=== PATIENT | female | born 1945 | race Caucasian/White ===

== ENCOUNTER 2016-12-23 23:26 | Inpatient (IN) ==
--- NOTE | 2016-12-24 00:47 | PROVIDER DOCUMENTATION ---
HPI-Fever - General Chief Complaint: Fever Stated Complaint: FEVER Time Seen by Provider: 12/24/16 00:05 Source: patient, family Allergies/Adverse Reactions: Patient Allergies Allergy/AdvReac Type Severity Reaction Status Date / Time ceftriaxone sodium * Allergy Severe Unknown Verified 12/23/16 23:49 [From Rocephin] pseudoephedrine Allergy Severe Unknown Verified 12/23/16 23:49 trospium chloride * Allergy Severe SWELLING Verified 12/23/16 23:49 [From Sanctura] amitriptyline HCl * Allergy Mild NAUSEA/VOMI Verified 12/23/16 23:49 [From Elavil] TING cephalexin monohydrate * Allergy Mild RASH Verified 12/23/16 23:49 [From Keflex] chlorzoxazone Allergy Mild Unknown Verified 12/23/16 23:49 [From Parafon Forte] cisapride monohydrate * Allergy Mild NAUSEA/VOMI Verified 12/23/16 23:49 [From Propulsid] TING droperidol [From Inapsine] Allergy Mild NAUSEA/VOMI Verified 12/23/16 23:49 TING gentamicin [Gentamicin] Allergy Mild RASH Verified 12/23/16 23:49 Penicillins Allergy Mild HIVES Verified 12/23/16 23:49 Phenothiazines Allergy Mild Unknown Verified 12/23/16 23:49 sertraline HCl * Allergy Mild Unknown Verified 12/23/16 23:49 [From Zoloft] Sulfa (Sulfonamide Allergy Mild RASH Verified 12/23/16 23:49 Antibiotics) baclofen Allergy Unknown Unknown Verified 12/23/16 23:49 bupropion HCl * Allergy Unknown Unknown Verified 12/23/16 23:49 [From Wellbutrin] escitalopram oxalate * Allergy Unknown Unknown Verified 12/23/16 23:49 [From Lexapro] Iodinated Contrast Media - Allergy Unknown Unknown Verified 12/23/16 23:49 Oral and adhesive AdvReac Mild Unknown Verified 12/23/16 23:49 adhesive tape AdvReac Unknown RASH Verified 12/23/16 23:49 Home Medications: Home Medication List Medication Instructions Recorded Confirmed Last Taken Type Aspirin 1 tab PO BID 07/28/12 12/24/16 12/11/15 History Levothyroxine [Synthroid] 50 microgm PO DAILY 07/28/12 12/24/16 12/11/15 History Nitroglycerin 0.4 mg SL PRN PRN 07/28/12 12/24/16 06/15/14 09:30 History Vitamin A 10,000 unit PO DAILY 07/28/12 12/24/16 12/11/15 History Cholecalciferol (Vitamin D3) 2,000 units PO BID 04/07/13 12/24/16 12/11/15 History [Vitamin D3] Cyanocobalamin (Vitamin B-12) 1,000 mcg IM DIRECTED 04/07/13 12/24/16 History [B-12] Sodium/K+/Mag/Ca/Chlor/Acetate 900 ml IV Q12HR 07/24/13 12/24/16 12/11/15 History [TPN Electrolytes Vial] Methocarbamol [Robaxin] 1 tab PO Q8H 12/01/13 12/24/16 12/11/15 History Promethazine [Phenergan] 25 mg PO Q6H PRN PRN 12/01/13 12/24/16 12/11/15 History Alprazolam 0.25 mg PO BID 08/17/14 12/24/16 11/16/15 History Denosumab [Prolia] 60 mg IM DIRECTED 08/17/14 12/24/16 12/11/15 History Furosemide [Lasix] 30 mg IV QHS 08/17/14 12/24/16 12/11/15 History Furosemide [Lasix] 60 mg IV QAM 08/17/14 12/24/16 12/11/15 History Warfarin [Coumadin] 1 mg PO QHS 08/17/14 12/24/16 12/11/15 History Diltiazem HCl 30 mg PO BID 04/28/15 12/24/16 12/11/15 History Metolazone [Zaroxolyn] 2.5 mg PO TUTH 04/28/15 12/24/16 12/11/15 History Hydrocodone/Acetaminophen [Philpot 1 each PO Q4H PRN PRN #20 tablet 05/03/1512/2411/15/15 Rx 10-325 Tablet] Ertapenem 1 gm/Ns [Invanz 1 gm/Ns] 1 gm .SEE ORDER DAILY #7 ivpb 11/28/1512/11/15 Rx Polyethylene Glycol 3350 [Miralax] 17 gm PO DAILY #30 powd.pack 11/28/1512/11/15 Rx Trazodone [Desyrel] 150 mg PO QHS #7 tablet 12/12/15 12/24/16 Unknown Rx - History of Present Illness-Fever Nature of Presenting Problem: PT C/O FEVER STARTING TODAY. STS "EVERYTIME I HAVE FEVER AND FEEL LIKE THIS, I A HAVE STAPH INFECTION IN MY PORTACATH". Fever Severity/Quality: reports: subjective Onset/Duration: reports: this evening Timing: reports: still present Severity: reports: moderate Context: reports: indwelling CVC Recent Illness?: reports: MRSA. denies: pneumonia, UTI, C. 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 denies: constipation, diarrhea, nausea, vomiting Similar Symptoms Previously?: Yes Recently seen or treated by another doctor?: Yes - Glascow Coma Score Best Eye Response ([place]): (4) open spontaneously Best Verbal Response ([place]): (5) oriented Best Motor Response ([place]): (6) obeys commands [place] Total: 15 Review of Systems - Adult - REVIEW OF SYSTEMS - ADULT Constitutional: reports: see HPI, chills, fever, fatique Eyes: reports: no symptoms reported. denies: blurred vision Ears, Nose, Mouth & Throat: reports: no symptoms reported. denies: ear pain, sinus problem, throat pain Cardiovascular: reports: no symptoms reported. denies: chest pain, palpitations , syncope Respiratory: reports: shortness of breath. denies: cough, wheezing Gastrointestinal: reports: no symptoms reported. denies: abdominal pain, nausea , vomiting Genitourinary: reports: no symptoms reported. denies: dysuria, flank pain, frequent UTI's, hematuria, urgency Musculoskeletal: reports: muscle weakness. denies: muscle aches Integumentary: reports: no symptoms reported. denies: hives, rash Neurological: reports: no symptoms reported. denies: dizziness/vertigo, headache/migraines, syncope Psychiatric: reports: no symptoms reported Endocrine: reports: no symptoms reported Hematologic/Lymphatic: reports: no symptoms reported Allergic/Immunologic: reports: see HPI, frequent infections All Other Systems: Reviewed and Negative Past History - Adult - PAST MEDICAL HISTORY-ADULT Review of Records: reports: Old Records Reviewed, Nursing Assessment Review, Medications Reviewed, Social history reviewed & non-contributory. Major Childhood Illnesses: reports: denies history Cardiovascular: reports: CAD, HTN, heart valve problem, palpitations, PVD Respiratory: reports: asthma, COPD, other (sleep apena) Gastrointestinal: reports: GERD, inflammatory bowel disease, ulcer, other (TPN Nutrition) Obstetrical/Gynecological: reports: denies history Genitourinary: reports: denies history Musculoskeletal: reports: other fractures, orthopedic injury Neurological: reports: CVA, TIA Endocrine/Immune: reports: thyroid disorder (hypo) Other Conditions: reports: denies history Additional History: scleroderma - PRIOR SURGERIES/PROCEDURES Surgical/Procedure History: reports: appendectomy, cholecystectomy, hysterectomy , hernia repair, bowel surgery, orthopedic (extremity), joint replacement, other (breast sx) - PRIOR HOSPITALIZATIONS Prior Hospitalizations: reports: for similar symptoms (recent) - IMMUNIZATION STATUS Childhood Immunizations: See Nurse Assessment Flu Vaccine: See Nurse Assessment - FAMILY HISTORY Family History: reviewed, not pertinent - SOCIAL HISTORY Smoking: cigarettes Provider spent 3-5 mins advising pt. on dangers of tobacco.: Discussed manners to quit use, and f/u contacts for add'l counseling. Physical Exam-General - PHYSICAL EXAM-ADULT Initial Vital Signs Reviewed: Yes - CONSTITUTIONAL General Appearance: appears well, alert, no apparent distress, thin - EYES Eyes: PERRL/EOMI - HEAD, EARS, NOSE, MOUTH & THROAT HENMT: normocephalic/atraumatic, moist mucous membranes - NECK Neck: non-tender, full range of motion, supple, normal inspection - RESPIRATORY Respiratory: chest non-tender, no pleuratic chest pain, no respiratory distress , no accessory muscle use, decreased breath sounds. negative: crackles, wheezing, pain on inspiration - CARDIOVASCULAR Cardiovascular: normal peripheral pulses, regular rate, rhythm - GASTROINTESTINAL (ABDOMEN) Abdominal Exam: normal bowel sounds, non tender, soft, no organomegaly, no pulsatile mass - LYMPHATIC Lymphatic: no adenopathy - MUSCULOSKELETAL Back Exam: no CVA tenderness, no vertebral tenderness, scoliosis. 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 NOTED.) - NEUROLOGIC Neurologic: grossly normal, motor weakness (PT HAS CHRONIC SCLERODERMA, BASELINE WEAKNESS AND MOBILITY ISSUES AT HOME) - PSYCHIATRIC Psych/Mental Status: normal mood/affect, oriented x 3 Progress - PLAN OF CARE/RESULTS Progress/Plan/Lab Results: Vital Signs - 8 hr 12/24/16 05:18 12/24/16 06:27 12/24/16 07:49 Temperature 102.2 F H 102.5 F H Pulse Rate 119 H Respiratory Rate 24 Blood Pressure 151/74 O2 Sat by Pulse Oximetry 95 12/24/16 06:20 Influenza Screen - Final Nasopharyngeal Laboratory Results - last 24 hr 12/24/16 12/24/16 12/24/16 00:58 00:58 00:58 WBC 7.74 RBC 3.73 L Hgb 11.9 L Hct 35.9 L MCV 96.2 MCH 31.9 H MCHC 33.1 RDW Std Deviation 13.7 Plt Count 158 MPV 12.4 H Immature Gran % (Auto) 0.0 Neut % (Auto) 83.6 H Lymph % (Auto) 8.7 L Banner % (Auto) 7.4 Eos % (Auto) 0.0 Baso % (Auto) 0.3 Immature Gran # (Auto) 0.00 Neut # (Auto) 6.48 Lymph # (Auto) 0.67 L Banner # (Auto) 0.57 Eos # (Auto) 0.00 Baso # (Auto) 0.02 PT INR PTT (Actin FS) Sodium 137 Potassium 3.7 Chloride 98 Carbon Dioxide 29 Anion Gap 10 BUN 30 H Creatinine 0.8 Estimated GFR/1.73 m2 > 60 BUN/Creatinine Ratio 38 Glucose 96 Calculated Osmolality 280 Calcium 9.2 Total Bilirubin 0.21 AST 28 ALT 21 Alkaline Phosphatase 90 Creatine Kinase 78 Troponin T Total Protein 6.4 Albumin 3.6 Globulin 2.8 Albumin/Globulin Ratio 1.3 Plasma Lactate 1.0 Urine Source Urine Color Urine Turbidity Urine pH Ur Specific [place] Urine Protein Ur Glucose (Stick) Ur Ketones (Stick) Urine Blood Urine Nitrite Urine Bilirubin Urobilinogen Dipstick Urine Leukocytes Urine WBC (Auto) Urine RBC (Auto) U Epithel Cells (Auto) Urine Bacteria (Auto) 12/24/16 12/24/16 12/24/16 00:58 00:58 02:19 WBC RBC Hgb Hct MCV MCH MCHC RDW Std Deviation Plt Count MPV Immature Gran % (Auto) Neut % (Auto) Lymph % (Auto) Banner % (Auto) Eos % (Auto) Baso % (Auto) Immature Gran # (Auto) Neut # (Auto) Lymph # (Auto) Banner # (Auto) Eos # (Auto) Baso # (Auto) PT 10.7 INR 1.02 PTT (Actin FS) 26.1 Sodium Potassium Chloride Carbon Dioxide Anion Gap BUN Creatinine Estimated GFR/1.73 m2 BUN/Creatinine Ratio Glucose Calculated Osmolality Calcium Total Bilirubin AST ALT Alkaline Phosphatase Creatine Kinase Troponin T < 0.010 Total Protein Albumin Globulin Albumin/Globulin Ratio Plasma Lactate Urine Source CATH Urine Color YELLOW Urine Turbidity CLEAR Urine pH 5.5 Ur Specific [place] 1.023 Urine Protein TRACE A Ur Glucose (Stick) NEGATIVE Ur Ketones (Stick) NEGATIVE Urine Blood NEGATIVE Urine Nitrite NEGATIVE Urine Bilirubin NEGATIVE Urobilinogen Dipstick NORMAL Urine Leukocytes NEGATIVE Urine WBC (Auto) <10 Urine RBC (Auto) <10 U Epithel Cells (Auto) <10 Urine Bacteria (Auto) NEGATIVE Orders Category Date Time Status Admit - [facility] Routine AdmDCTranf 12/24/16 08:24 Ordered Cardiac Monitoring DIRECTED Care 12/24/16 00:41 Active CHEST-2 VIEWS [RAD] Stat Exams 12/24/16 00:41 Completed BLOOD CULTURE [BLDCUL] Stat Lab 12/24/16 00:58 Results CBC WITH DIFF [HEME] Stat Lab 12/24/16 00:58 Completed CK PROFILE [SP CHEM] Stat Lab 12/24/16 00:58 Completed COMPREHENSIVE METABOLIC PANEL [CHEM] Stat Lab 12/24/16 00:58 Completed INFLUENZA SCREEN A/B Stat Lab 12/24/16 06:20 Completed LACTATE, PLASMA [CHEM] Stat Lab 12/24/16 00:58 Completed PROTIME WITH INR [COAG] Stat Lab 12/24/16 00:58 Completed PTT [COAG] Stat Lab 12/24/16 00:58 Completed TROPONIN T Stat Lab 12/24/16 00:58 Completed URINALYSIS W/POSS RFLX CULT-1 [URINALYSIS] Stat Lab 12/24/16 02:19 Completed Heparin Med 12/24/16 05:27 Discontinued 500 unit .ROUTE .STK-MED ONE Heparin Lock Med 12/24/16 05:25 Discontinued 50 unit INJ ONCE ONE Ibuprofen [Motrin] Med 12/24/16 06:28 Discontinued 800 mg PO NOW ONE Vancomycin 1 gm/Ns Med 12/24/16 04:18 Discontinued 1 gm in 250 ml IV NOW Oxygen Device Stat Oth 12/24/16 00:41 Active Transfer/Admit Order [TRANSFER] Routine Transfer 12/24/16 08:25 Ordered Result Diagrams: 12/24/16 00:58 12/24/16 00:58 - REASSESSMENT Reassessment #1 Status: unchanged (discussed need for admissioin for further treatment / evaluation) - CHANGE OF SHIFT REPORT (ED Provider) Report Given and Care Transferred to:: DR. CROCKER Time of Transfer: 02:09 Items Pending: Labs, XRAY Results Departure - Departure Date of Disposition Decision: 12/24/16 Time of Disposition Decision: 08:54 DIAGNOSIS: Scleroderma bowel disease, Intravenous catheter in place Fever Qualifiers: Fever type: unspecified Qualified Code(s): R50.9 - Fever, unspecified Disposition: ADMITTED INPATIENT 09 Certified Medical Emergency: Emergent Condition: Stable - Critical Care Note This patient required my direct & personal management of CC.: No Attestation - Physician/ LINDA Attestation Patient care was provided by Advanced Practice Provider:: Yes Advanced Practice Provider:: Kenisha Atkins Advanced Practice Provider documentation review:: The Mid-level provider documentation, treatment plan and medical decision making was reviewed by the physician who agrees with all treatment and medical decision making by the [facility].
[2016-12-24 01:29] LABS: MANUAL DIFF NEEDED? NO
[2016-12-24 01:38] LABS: BASO% 0.3 % (0.0-0.8); HEMATOCRIT 35.9 % (37.0-47.0); HEMOGLOBIN 11.9 g/dL (12.0-16.0); LYMPH# 0.67 X1000 (1.2-3.4); LYMPH% 8.7 % (20.5-51.1); MCH 31.9 PG (27-31); MCHC 33.1 g/dL (33-37); MCV 96.2 FL (81-99); MONO# 0.57 X1000 (0.11-0.59); MONO% 7.4 % (1.7-9.3); MPV 12.4 FL (7.4-10.4); NEUT% 83.6 % (42.2-75.2); PLT 158 X1000 (130-400); RBC 3.73 XMIL (4.2-5.4)
[2016-12-24 01:44] LABS: INR 1.02; PROTIME 10.7 Seconds (9.2-11.7); PTT 26.1 Seconds (22.0-36.0)
[2016-12-24 02:02] LABS: AGAP 10; ALBUMIN 3.6 g/dL (3.5-5.0); ALKALINE PHOSPHATASE 90 U/L (32-104); BUN 30 mg/dL (8-22); CALCIUM 9.2 mg/dL (8.8-10.2); CHLORIDE 98 mmol/L (98-107); CK PROFILE 78 U/L (24-173); COSMO 280; GOT 28 U/L (10-30); GPT 21 U/L (10-36); POTASSIUM 3.7 mmol/L (3.5-5.1); SODIUM 137 mmol/L (136-145); TCO2 29 mmol/L (25-35); TOTAL BILIRUBIN 0.21 mg/dL (0.20-1.00); TOTAL PROTEIN 6.4 g/dL (6.3-8.3)
[2016-12-24 02:29] LABS: URINE CULTURE NEEDED? NO; URINE MICRO REVIEW NEEDED? NO; URINE SOURCE CATH
[2016-12-24 02:31] LABS: BILIRUBIN URINE NEGATIVE (NEGATIVE); BLOOD URINE NEGATIVE (NEGATIVE); COLOR YELLOW; GLUCOSE URINE NEGATIVE (NEGATIVE); LEUKOCYTES URINE NEGATIVE (NEGATIVE); NITRITE URINE NEGATIVE (NEGATIVE); PH URINE 5.5; PROTEIN URINE TRACE mg/dL (NEGATIVE); SP GRAVITY URINE 1.023; TURBIDITY URINE CLEAR (CLEAR); UROBILINOGEN URINE NORMAL (NORMAL)
[2016-12-24 02:32] LABS: UR EPITHELIAL CELLS <10 /HPF (<10); URINE BACTERIA NEGATIVE /HPF; URINE RBC <10 /HPF (<10); URINE WBC <10 /HPF (<10)
[2016-12-24] MEDS ORDERED: VANCOMYCIN 1 GM/NS 1 GM/250 ML IVPB IV ONE (04:18)
[2016-12-24] MEDS ORDERED: HEPARIN ONE (05:27)
[2016-12-24] MEDS ORDERED: MOTRIN PO ONE (06:28)
--- NOTE | 2016-12-24 07:31 | Diag Imaging Result Doc PS360 ---
EXAM: CHEST-2 VIEWS HISTORY: SOB, FEVER TECHNIQUE: PA and lateral chest COMMENT: There is elevation of the left hemidiaphragm which was also the case on 12/19/2016. There is apparent COPD. Overall, there has been no significant change since the previous study. IMPRESSION: Stable chest. Electronically signed by Jacob Zuñiga 12/24/2016 7:29 AM
[2016-12-24] MEDS ORDERED: CHLOR IV SCH (09:14)
[2016-12-24] MEDS ORDERED: [UNRECOGNIZED DRUG - OTHER] IV SCH (09:14)
[2016-12-24] MEDS ORDERED: NS SCH (09:14)
[2016-12-24] MEDS ORDERED: SODIUM IV SCH (09:14)
[2016-12-24] MEDS ORDERED: NITROGLYCERIN SL PRN (09:14)
[2016-12-24] MEDS ORDERED: NORCO-10 PO PRN (09:14)
[2016-12-24] MEDS ORDERED: PATIENT'S OWN MED IM SCH ×2 (09:14)
[2016-12-24] MEDS ORDERED: ERTAPENEM SCH (09:14)
[2016-12-24] MEDS ORDERED: ACETATE IV SCH (09:14)
[2016-12-24] MEDS ORDERED: MAG IV SCH (09:14)
[2016-12-24] MEDS ORDERED: SODIUM CHLORIDE 0.9% INJ PRN (10:00)
[2016-12-24] MEDS ORDERED: MYCAMINE 100 MG in NS 100 ML IV SCH (10:00)
--- NOTE | 2016-12-24 10:12 | Diag Imaging Result Doc PS360 ---
EXAM: ABDOMEN FLAT/UPRIGHT HISTORY: abd distention TECHNIQUE: Portable upright and supine, two views COMPARISON: 01/06/2014 FINDINGS: Moderate scoliosis. No bowel obstruction. No organomegaly. Mechanical device overlies the lower left abdomen. Prior orthopedic replacement of the left hip. IMPRESSION: No definite acute abnormality. Electronically signed by Cody Álvarez 12/24/2016 10:09 AM
[2016-12-24] MEDS ORDERED: CUBICIN (FOR INPATIENT USE) 500 MG in NS 100 ML IV SCH (11:00)
[2016-12-24 11:08] LABS: IRON SATURATION 4 %; TIBC 271 ug/dL; TOTAL IRON 11 ug/dL (49-151); UNBOUND IRON 260 ug/dL (112-346)
[2016-12-24] MEDS: MIRALAX PO SCH (11:19)
[2016-12-24] MEDS ORDERED: NS 1,000 ML ONE (11:27)
[2016-12-24] MEDS: XANAX PO SCH ×2 (11:29→21:38)
[2016-12-24] MEDS: VITAMIN D PO SCH ×2 (11:29→21:37)
[2016-12-24] MEDS: CARDIZEM PO SCH ×2 (11:29→21:37)
[2016-12-24] MEDS: ASPIRIN PO SCH ×2 (11:29→21:37)
[2016-12-24] MEDS: ROBAXIN PO SCH ×2 (11:30→18:20)
[2016-12-24] MEDS: NS 1,000 ML IV SCH (11:31)
[2016-12-24] MEDS: SYNTHROID PO SCH (11:31)
[2016-12-24] MEDS: LASIX IV SCH ×2 (11:40→21:36)
--- NOTE | 2016-12-24 12:15 | HISTORY AND PHYSICAL ---
PRIMARY CARE PHYSICIAN: Gregorio Guillen MD. CHIEF COMPLAINT: Fever. HISTORY OF PRESENT ILLNESS: Mrs. Elizondo is an unfortunate 71-year-old female with a history of severe systemic scleroderma and multiple other medical problems, who presents with 12 hours of fever and chills. The patient has had multiple Port-A-Cath exchanges secondary to infection. She states that any time she has a fever, her port has become infected and she feels this is the case this time. Fever and chills started around 6-7:00 last night. She had hard chills followed by a fever of 102 degrees. She did have some mild nausea and 1 episode of vomiting this morning. She also reports a bit of a dry cough, but no sputum production. She denies any chest pain or shortness of breath, she does have some mild abdominal distention, but she does report flatus and bowel movements. Prior to last evening, she was in her normal state of health. When she came to the ER, she had labs and diagnostics done. Her initial temperature was 100.3 degrees Fahrenheit, and this tiffanie to 102.5 degrees Fahrenheit and she is slightly tachycardic. Her lab work does not show anything acute, she does not have any leukocytosis. She is mildly anemic, but otherwise labs, which include urinalysis did not show any other signs of infection. Given her history, vasquez cultures have been obtained and broad-spectrum antibiotics have been initiated. We are going to admit her to the floor for suspected sepsis. PAST MEDICAL HISTORY: 1. Severe systemic scleroderma, affecting lungs, GI and skin. 2. Malabsorption syndrome on TPN. 3. History of CVA and TIAs. 4. Hypertension. 5. Hypothyroidism. 6. Anxiety. 7. History of osteomyelitis and recurrent lower extremity cellulitis. 8. COPD. 9. Osteoporosis. 10. Osteoarthritis. 11. Rheumatoid arthritis. 12. Chronic anemia. 13. Coronary artery disease status post non-ST elevation [place]. PAST SURGICAL HISTORY: She has had bowel resection x3. Pain pump implement implantation, multiple Port-A-Cath insertions and removals. Left femoral neck fracture repair. Left hip total arthroplasty, PCI, thoracic laminectomy, lysis of small bowel adhesions, left breast lumpectomy, hysterectomy, highly selective vagotomy, cholecystectomy, appendectomy. SOCIAL HISTORY: Patient is . She does not smoke, use illicit substances or drink alcohol. ALLERGIES: Rocephin, pseudoephedrine, Sanctura, Elavil, Keflex, Parafon Forte, Propulsid, Inapsine, gentamicin, penicillin, phenothiazine, Zoloft, sulfa, baclofen, Wellbutrin, Lexapro, IV contrast media oral and IV, Invanz, adhesives. FAMILY HISTORY: Noncontributory. REVIEW OF SYSTEMS: Fourteen-point review of systems obtained and found to be negative with the exception of the HPI. HOME MEDICATIONS: Xanax 0.25 mg p.o. b.i.d., aspirin 81 mg b.i.d., vitamin D3 2000 p.o. b.i.d., vitamin B12 at 1000 mcg IM as directed. Prolia 60 mg IM as directed, Cardizem 30 mg p.o. b.i.d., Lasix 30 mg IV at bedtime, Lasix 60 mg IV q.a.m., Synthroid 50 mcg p.o. daily. Robaxin 500 mg every 8 hours. Zaroxolyn 2.5 mg p.o. on Saturday and . Nitroglycerin as needed, Phenergan 25 mg p.o. as needed. TPN as directed. Desyrel 150 mg p.o. at bedtime, vitamin A 10,000 units p.o. daily, Coumadin 1 mg p.o. at bedtime. PHYSICAL EXAMINATION: VITAL SIGNS: Blood pressure is 100/50, heart rate 106, respiratory rate 18, O2 saturations 96% on 3 L nasal cannula. Temperature is 102.5. GENERAL: This is a chronically ill-appearing, 71-year-old female, lying in hospital bed. No acute distress. NEUROLOGIC: The patient is a bit sleepy, but she opens her eyes spontaneously. She is oriented and follows commands without focal deficits. HEENT: Head is atraumatic, normocephalic. Her pupils are equal, round, reactive to light. Oral mucosa is moist. Trachea is midline. CHEST: Diminished at the bases. CARDIOVASCULAR: Regular rate and rhythm. S1-S2 is noted. GI: Slightly distended, but nontender. Bowel sounds are hypoactive. EXTREMITIES: No edema, but she does have brownish discoloration in both lower extremities. Pulses are palpable, but diminished bilaterally. No signs of infection present at this time. DIAGNOSTIC DATA: Chest x-ray shows left hemidiaphragm elevation. Glucose is unchanged, otherwise no other findings of concern. WBC 7.74, hemoglobin 11.9, hematocrit 35.9, platelet count 158. INR 1.02, sodium 137, potassium 3.7, chloride 98, CO2 of 29, anion gap 10, BUN 30, creatinine 0.8, glucose 96, calcium 9.2. LFTs and troponin are negative. Albumin 3.6. UA does not show any acute findings. Lactic acid serum is 1. ASSESSMENT AND PLAN: 1. Suspected sepsis: We have pancultured the patient and we are going to start her on daptomycin. We will also add micafungin as she has a history of huy fungemia in the past. We have also ordered fungal cultures. Dr. Thao has been consulted. Will add IV fluid hydration and monitor. We will give her Tylenol and Advil for fever. 2. Mild abdominal distention: We will check an abdomen x-ray now. If any suspicious findings for obstruction, will get a CT, but she is nontender. 3. History of coronary artery disease: Patient denies any chest pain or orthopnea. Will continue her home medications and monitor her on telemetry. 4. Severe systemic scleroderma with malabsorption: We are going to consult Nutrition for total parenteral nutrition management and continue her TPN. 5. Hypothyroidism: She has had recent thyroid function panel done. We will continue her Synthroid. 6. B12 deficient anemia: We are going to check iron studies and continue her IM B12. 7. If the patient's port is indeed infected, we will need to consult surgery and have at least a PICC line placed, if not complete replacement of the port system. 8. Deep vein thrombosis prophylaxis is provided with low-dose Coumadin, which she takes at home. Further recommendations to follow. Dictated by JESSE Haas for Constance Arroyo MD cc: JESSE Haas MD Hiteshri S. Bhavsar, MD The patient was seen and examined by me. I agree with the assessment and plan as dictated. [facility]
[2016-12-24] MEDS: PATIENT'S OWN MED PO SCH (14:04)
[2016-12-24] MEDS: PERCOCET-5 PO SCH (16:09)
[2016-12-24] MEDS ORDERED: VANCOMYCIN IV PER PHARMACY MISC SCH (16:15)
[2016-12-24] MEDS: PHENERGAN IV PRN (16:26)
[2016-12-24] MEDS ORDERED: AZACTAM 1 GM in NS 50 ML IV SCH (17:00)
[2016-12-24 17:54] LABS: AGAP 14; BUN 19 mg/dL (8-22); CALCIUM 8.7 mg/dL (8.8-10.2); CHLORIDE 98 mmol/L (98-107); COSMO 279; GOT 68 U/L (10-30); MAGNESIUM 1.4 mg/dL (1.5-2.7); POTASSIUM 2.8 mmol/L (3.5-5.1); PREALBUMIN 13.1 mg/dL (20-40); SODIUM 139 mmol/L (136-145); TCO2 27 mmol/L (25-35); TRIGLYCERIDES 145 mg/dL (35-135)
[2016-12-24] MEDS ORDERED: VANCOMYCIN 1,500 MG in NS 250 ML IV ONE (19:00)
[2016-12-24] MEDS: DESYREL PO SCH (21:37)
[2016-12-24] MEDS: COUMADIN PO SCH (21:37)
[2016-12-24] MEDS: TYLENOL PO PRN (21:37)
[2016-12-24] MEDS: POTASSIUM CHLORIDE IV SCH ×9 (21:57)
[2016-12-24] MEDS: MAGNESIUM SULFATE IV SCH ×9 (21:57)
[2016-12-24] MEDS: [UNRECOGNIZED DRUG - OTHER] IV SCH ×9 (21:57)
[2016-12-24] MEDS: CALCIUM GLUCONATE IV SCH ×9 (21:57)
[2016-12-24] MEDS ORDERED: LIPOSYN 20% 500 ML IV SCH (22:00)
[2016-12-25] MEDS: NS 1,000 ML IV SCH (01:26)
--- NOTE | 2016-12-25 02:43 | CONSULTATION ---
DATE OF CONSULTATION: 12/24/2016 CONCLUSION: Patient is admitted with a one-day history of fever and shaking chills. I agree with the other physicians that most likely patient has an infection in her right- sided Port-A-Cath. RECOMMENDATIONS: I have discontinued daptomycin and micafungin. I have put the patient on vancomycin and because of her allergy to Rocephin, I have chosen to put her on aztreonam. DISCUSSION: The patient has a one-day history of fever and chills. She has had previously Port-A- Cath infections and she did say that she does get fever and chills with them. She is not coughing. She is not complaining of dysuria. She does have some nausea and vomiting and reflux, mainly because of her scleroderma. She has not noticed any skin rash. Laboratory studies thus far show a CBC with a white count of 7740, hemoglobin 11.9, and platelet count 158,000, creatinine 0.8. GFR is greater than 60. A swab for influenza was negative. Blood and urine cultures are pending. Chest x-ray shows COPD with an elevated left hemidiaphragm. PAST MEDICAL HISTORY/REVIEW OF SYSTEMS: Eyes and ears: She denies difficulty hearing or seeing. Neck: No stiffness. Respiratory: She does not have a chronic cough. The patient intermittently has coughing. She does have some dyspnea on exertion. She is not producing any sputum at this time. GI: Patient cannot absorb food well and she that is why she is on permanent hyperalimentation which she does over a 12 hour period at night. Genitourinary: No dysuria or flank pain. Bones, joints, muscles: Patient has thickened and stretched skin. She also has joint swelling due to her rheumatoid arthritis. The skin changes are due to scleroderma. Also as a result of scleroderma, the patient has gastroesophageal reflux disease. Endocrine: No thyroid disease. Patient has hypothyroidism, but not diabetes mellitus. Hematologic: Patient does not have anemia but she does have problems with bleeding because she is on Coumadin. Neurologic: She does not have seizures or syncopal episodes. No motor or sensory loss. The remainder of the patient's review of systems was completed and was negative. SOCIAL HISTORY[place] She smoke cigarettes. She does not drink alcoholic beverages or abuse drugs. She is . She is disabled. 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 She has had a hysterectomy. PREVIOUS HOSPITALIZATIONS AND OPERATIONS: She has had multiple Port-A-Cath removed and replaced. She is a 3, para 2, AB 1. She has had a hysterectomy. She has had a stroke and a left total hip arthroplasty. MEDICAL DISEASES: Positive for scleroderma, hypertension, stroke, rheumatoid arthritis and gastroesophageal reflux disease, hypothyroidism. INFECTIOUS DISEASE HISTORY: Positive for pneumonia and UTI. FAMILY HISTORY: Positive for diabetes mellitus, hypertension, and stroke. SOCIAL HISTORY: [place] She smoke cigarettes. Does not drink alcoholic beverages or abuse drugs. She is . She is disabled. DRUG ALLERGIES: Rocephin, pseudoephedrine, Sanctura, amitriptyline, Keflex, Parafon Forte, Propulsid, Niaspan, gentamicin, penicillin, phenothiazine, sertraline, sulfa, baclofen, Wellbutrin, Lexapro, iodinated contrast, ertapenem and adhesive tape. MEDICATIONS TAKEN AT HOME INCLUDE THE FOLLOWING: Oxycodone. Cholecalciferol. Aspirin. Alprazolam. Zaroxolyn. Robaxin. Synthroid. Lasix. Diltiazem. Prolia. Vitamin B12. Phenergan. Coumadin. Vitamin A. Trazodone. Nitroglycerin. PHYSICAL EXAMINATION: Vital signs: Temperature was 102.5 degrees, now it is 98.4, pulse 102, respirations 18, blood pressure 125/59. Patient weighs 137 pounds. General General: Patient looks ill. She has a mask facies and skin that feels firm without any wrinkles over her hands. Head, eyes, ears, nose and throat: She can hear my spoken words and see near objects. No drainage noted from the nose or ears. Neck: No meningismus. Thorax: Port-A -Cath present on the right side. The site is not swollen, tender or erythematous. Lungs: Clear to auscultation. Cardiovascular: Regular heart rate. Abdomen: Soft and nontender. Bones, joints, muscles: She does have multiple finger deformities due to rheumatoid arthritis with swelling of the joints. Integument: Patient has thickened skin without any wrinkles due to her scleroderma. Neurologic: Patient is alert. She can move her extremities. There is no tremor. Her sensation is intact to touch. Her memory as regarding her medical diseases seems to be intact. ADDENDUM: Blood cultures growing gram positive cocci. Continue vancomycin, D/C aztreonam. Thank you for the consult. cc: John Thao MD MTDD
[2016-12-25] MEDS: ROBAXIN PO SCH ×3 (04:56→17:44)
[2016-12-25] MEDS: PHENERGAN IV PRN ×3 (04:57→22:04)
[2016-12-25] MEDS: SYNTHROID PO SCH (06:27)
[2016-12-25] MEDS: TYLENOL PO PRN (06:31)
[2016-12-25 06:41] LABS: HEMATOCRIT 36.9 % (37.0-47.0); HEMOGLOBIN 12.2 g/dL (12.0-16.0); MCH 32.3 PG (27-31); MCHC 33.1 g/dL (33-37); MCV 97.6 FL (81-99); MPV 12.2 FL (7.4-10.4); RBC 3.78 XMIL (4.2-5.4)
[2016-12-25 06:42] LABS: MAGNESIUM 1.7 mg/dL (1.5-2.7)
[2016-12-25 06:49] LABS: AGAP 11; BUN 25 mg/dL (8-22); CALCIUM 9.1 mg/dL (8.8-10.2); CHLORIDE 100 mmol/L (98-107); COSMO 284; POTASSIUM 3.5 mmol/L (3.5-5.1); SODIUM 139 mmol/L (136-145); TCO2 28 mmol/L (25-35)
[2016-12-25] MEDS ORDERED: NS 0 ML ONE (08:12)
[2016-12-25] MEDS: VITAMIN D PO SCH ×2 (09:08→20:37)
[2016-12-25] MEDS: CARDIZEM PO SCH ×2 (09:09→20:37)
[2016-12-25] MEDS: ASPIRIN PO SCH ×2 (09:09→20:36)
[2016-12-25] MEDS: PERCOCET-5 PO SCH ×4 (09:09→17:44)
[2016-12-25] MEDS: ZAROXOLYN PO SCH (09:09)
[2016-12-25] MEDS: XANAX PO SCH ×2 (09:09→20:36)
[2016-12-25] MEDS: MIRALAX PO SCH (09:10)
[2016-12-25] MEDS: PATIENT'S OWN MED PO SCH (09:11)
[2016-12-25] MEDS: LASIX IV SCH ×2 (09:16→20:34)
--- NOTE | 2016-12-25 15:33 | PROGRESS NOTE ---
DATE: 12/25/2016 SUBJECTIVE: This patient states that she is feeling better. She is not having fever or chills today. Yesterday night she had a low-grade fever. She has a right Port-A-Cath in the chest that probably is infected, and we have a positive blood culture that showed gram-positive cocci 2/2. OBJECTIVE: Vital Signs: Temperature 98 degrees, pulse 85, respiratory rate 19, blood pressure 108/65, oxygen saturation 98 on 2 L of nasal cannula. HEENT: Head normocephalic. No trauma. PERRLA. Neck: Supple. No JVD. No masses. Central trachea. Chest: Right upper chest Port-A- Cath without erythema. Mild soreness to palpation. She has multiple scars at the level of the left upper chest secondary to previous multiple Port-A-Cath's. Abdomen.: Soft, nontender, nondistended. No hepatosplenomegaly. Extremities: No edema. No clubbing. No cyanosis. She has some feet deformity and had hand deformity as well secondary to rheumatoid arthritis. Neurological examination: The patient is alert and oriented x3. No focal neurological deficits. LABORATORY: WBC 7.1, hemoglobin 12.2, hematocrit 36.9, platelets 108. Sodium 139, potassium 3.5, chloride 100, bicarbonate 28, BUN 25, creatinine 0.7, glucose 142, calcium 9.1, magnesium 1.7. ASSESSMENT AND PLAN: 1. Fever and chills. This patient initially was admitted because of fever and chills. Yesterday she had a low-grade fever during the night, but today she has been without fever. We did some cultures that showed a gram-positive cocci, so this patient has bacteremia. Infectious Disease Department is following this patient. We will continue following their recommendations. 2. Bacteremia as above. 3. Mild abdominal distention, resolved. Today the abdomen is okay. No pain and she is passing gas. 4. History of coronary artery disease. No chest pain or shortness of breath at this moment. 5. Severe systemic scleroderma with malabsorption. We will continue with total parenteral nutrition. 6. Hypothyroidism. Continue with Synthroid. 7. B 12 deficiency anemia, aware. Continue to monitor. 8. Deep vein thrombosis prophylaxis provided by low-dose Coumadin, which she takes at home. cc: Doe Laguna MD
--- NOTE | 2016-12-25 19:20 | PROGRESS NOTE ---
DATE: 12/25/2016 PRESENT ILLNESS: The patient has a gram-positive coccal bacteremia most likely originating from her Port-A-Cath. MEDICATIONS: Patient is receiving vancomycin. PHYSICAL EXAMINATION: Vital Signs: Temperature is 98.9 degrees, pulse 94, respirations 20, blood pressure 72/53. General: This is a much better appearing, elderly female than last night when she was having shaking chills. Lungs: Clear to auscultation. Cardiovascular: Regular heart rate. Abdomen: Soft and nontender. Chest: The patient's Port-A-Cath site is not swollen or erythematous. LAB AND X-RAY: CBC today shows a white count of 7100, hemoglobin 12.2, and platelet count 108,000. Creatinine 0.7. GFR is greater than 60. Swab for influenza was negative. Urine culture is negative. Blood culture is growing gram-positive cocci. They have not been identified yet. ASSESSMENT AND PLAN: For now we will continue vancomycin. If the patient's organism turns out to be a coagulase-negative staph, then it would be worthwhile trying to treat her with vancomycin for a 2-3 week period in the hopes of saving the Port-A-Cath. If the organism turns out to be Staph aureus or a virulent Streptococcus such as group A strep or group B strep, then most likely the Port-A-Cath will have to be removed to clear the patient's bacteremia. COMORBIDITIES: She has to have chronic hyperalimentation, therefore, there is the need for continual IV access. She is elderly. She has scleroderma, rheumatoid arthritis and gastroesophageal reflux disease. cc: John Thao MD
[2016-12-25] MEDS: DESYREL PO SCH (20:35)
[2016-12-25] MEDS: COUMADIN PO SCH (20:37)
[2016-12-25] MEDS: MAGNESIUM SULFATE IV SCH ×9 (21:46)
[2016-12-25] MEDS: CALCIUM GLUCONATE IV SCH ×9 (21:46)
[2016-12-25] MEDS: POTASSIUM CHLORIDE IV SCH ×9 (21:46)
[2016-12-25] MEDS: [UNRECOGNIZED DRUG - OTHER] IV SCH ×9 (21:46)
[2016-12-25] MEDS ORDERED: LIPOSYN 20% 250 ML IV SCH (22:00)
[2016-12-26] MEDS: ROBAXIN PO SCH ×3 (01:28→18:45)
[2016-12-26] MEDS: PHENERGAN IV PRN ×3 (05:19→20:42)
[2016-12-26] MEDS: SYNTHROID PO SCH (06:14)
[2016-12-26 06:45] LABS: MANUAL DIFF NEEDED? NO
[2016-12-26 06:55] LABS: BASO% 0.9 % (0.0-0.8); EOS# 0.27 X1000 (0.0-0.7); HEMATOCRIT 37.2 % (37.0-47.0); HEMOGLOBIN 12.5 g/dL (12.0-16.0); IMM GRAN# 0.02 X1000 (0.0-0.04); IMM GRAN% 0.4 % (0.0-0.5); LYMPH# 1.36 X1000 (1.2-3.4); LYMPH% 25.3 % (20.5-51.1); MCH 31.6 PG (27-31); MCHC 33.6 g/dL (33-37); MCV 94.2 FL (81-99); MONO# 0.31 X1000 (0.11-0.59); MONO% 5.8 % (1.7-9.3); MPV 12.3 FL (7.4-10.4); NEUT% 62.6 % (42.2-75.2); PLT 123 X1000 (130-400); RBC 3.95 XMIL (4.2-5.4)
[2016-12-26 07:07] LABS: INR 0.98; PROTIME 10.3 Seconds (9.2-11.7)
[2016-12-26 07:26] LABS: AGAP 12; ALBUMIN 3.1 g/dL (3.5-5.0); ALKALINE PHOSPHATASE 89 U/L (32-104); BUN 29 mg/dL (8-22); CALCIUM 9.6 mg/dL (8.8-10.2); CHLORIDE 94 mmol/L (98-107); COSMO 284; DIRECT BILIRUBIN < 0.20 mg/dL (0.00-0.20); GOT 49 U/L (10-30); GPT 34 U/L (10-36); MAGNESIUM 1.9 mg/dL (1.5-2.7); POTASSIUM 3.3 mmol/L (3.5-5.1); PREALBUMIN 13.8 mg/dL (20-40); SODIUM 138 mmol/L (136-145); TCO2 32 mmol/L (25-35); TOTAL PROTEIN 6.2 g/dL (6.3-8.3); TRIGLYCERIDES 399 mg/dL (35-135)
[2016-12-26] MEDS ORDERED: VANCOMYCIN 1,200 MG in NS 250 ML IV SCH (08:00)
[2016-12-26] MEDS ORDERED: KLOR-CON PO ONE (08:02)
[2016-12-26] MEDS: ASPIRIN PO SCH ×2 (08:40→20:44)
[2016-12-26] MEDS: VITAMIN D PO SCH ×2 (08:40→20:44)
[2016-12-26] MEDS: MIRALAX PO SCH ×2 (08:41→08:52)
[2016-12-26] MEDS: PATIENT'S OWN MED PO SCH (08:42)
[2016-12-26] MEDS: CARDIZEM PO SCH ×2 (08:48→20:44)
[2016-12-26] MEDS: PERCOCET-5 PO SCH ×3 (09:00→18:44)
[2016-12-26] MEDS: XANAX PO SCH ×2 (09:01→20:44)
[2016-12-26] MEDS: LASIX IV SCH ×2 (09:01→20:43)
--- NOTE | 2016-12-26 15:40 | PROGRESS NOTE ---
DATE: 12/26/2016 SUBJECTIVE: This patient states that she is feeling much better. She has generalized joint pain and this is likely secondary to her rheumatoid arthritis. I will ask today for physical therapy. Her potassium is also low. I will replace the potassium and pulled her on p.r.n. pain medication. OBJECTIVE: Vital Signs: Temperature 98.0 degrees, pulse 82, respiratory rate 17, blood pressure 119/62, oxygen saturation 92% on room air. HEENT: Head normocephalic. No trauma. PERRLA. Neck: Supple. No JVD. No masses. Central trachea. Chest: She has a right upper chest Port-A- Cath without erythema, mild soreness to palpation. She has multiple scars at the level of the left upper chest secondary to previous multiple Port-A-Cath removals. Abdomen: Soft, nontender, nondistended. No hepatosplenomegaly. Extremities: No edema. No clubbing. No cyanosis. She has foot and some hand deformities, as well, secondary to rheumatoid arthritis with pain. Neurologic: The patient is alert and oriented x3. No focal deficits. LABORATORY: WBC 5.3, hemoglobin 12.5, hematocrit 37.2, platelets 123,000. Sodium 138, potassium 3.3, chloride 94, bicarbonate 32, BUN 29, creatinine 0.7, glucose 142, calcium 9.6, magnesium 1.9, phosphorus 3.1, albumin 3.1. ASSESSMENT AND PLAN: 1. Fever and chills. No fever for the past 24 hours. We did a blood culture that showed Gram- positive cocci x2. One of them grew Staphylococcus capitis. The other one is pending sensitivity and bacteria. Infectious Disease Department is following this patient. We will continue with the same management for now. 2. Bacteremia, as above. 3. Mild abdominal distention, resolved. 4. History of coronary artery disease. No chest pain. No shortness of breath at this moment. 5. Severe systemic scleroderma with malabsorption. We will continue with TPN. 6. Hypothyroidism. Continue with Synthroid. 7. B12 deficiency anemia. Aware. Continue to monitor. 8. Deep vein thrombosis prophylaxis provided by low-dose Coumadin, which she takes at home. cc: Doe Laguna MD
--- NOTE | 2016-12-26 17:02 | PROGRESS NOTE ---
DATE: 12/26/2016 PRESENT ILLNESS: The patient has a bacteremia. Today, the organism has been identified as Staphylococcus capitis. MEDICATIONS: The patient currently is receiving vancomycin. PHYSICAL EXAMINATION: Vital Signs: Temperature is 98.9 degrees, pulse 87, respirations 15, blood pressure 118/86. Generally: This is a somewhat of an ill-appearing elderly female. She is in no acute distress. Lungs: Clear to auscultation. Cardiovascular: Regular heart rate. I did not hear a murmur. Abdomen: Soft and nontender. Chest: The patient's Port-A-Cath site is not erythematous or swollen. Extremities: Patient has changes consistent with rheumatoid arthritis and also scleroderma in her hands. LABORATORY DATA AND X-RAY: The patient's creatinine today is 0.7. GFR is greater than 60. CBC shows a white count of 5370. Hemoglobin 12.5 and platelet count 123,000. Creatinine is 0.7. GFR is greater than 60. ASSESSMENT AND PLAN: I discussed with the patient the finding of the Staphylococcus bacteremia. I told them that for organisms that are not Staphylococcus aureus but are still staphylococci coagulase negative cocci that it would be worthwhile treating the patient with antibiotics being delivered through her Port-A-Cath to see if we can save it and not have to take it out. I did tell her though that there still would be a possibility that we could not eradicate the bacteremia in that situation then the Port-A-Cath would have to be removed. The patient is agreeable to try this. She does have a history of allergy to ceftriaxone and Keflex, but she has told me, she has had Ancef many times and has tolerated it well. She is also allergic to penicillins. I have gone ahead and put the consult in for [facility] who manages the patient's TPN to also give her Ancef. Patient's comorbidities include that she has to have chronic TPN intravenously thus she requires a long-term IV catheter. She also has rheumatoid arthritis and scleroderma. She also has gastroesophageal reflux disease. cc: John Thao MD
[2016-12-26] MEDS: KEFZOL 2 GM/D5W 2 GM/50 ML IVPB IV SCH (18:44)
[2016-12-26] MEDS: DILAUDID IV PRN (20:42)
[2016-12-26] MEDS: DESYREL PO SCH (20:44)
[2016-12-26] MEDS: COUMADIN PO SCH (20:44)
[2016-12-26] MEDS: [UNRECOGNIZED DRUG - OTHER] IV SCH ×9 (23:07)
[2016-12-26] MEDS: CALCIUM GLUCONATE IV SCH ×9 (23:07)
[2016-12-26] MEDS: POTASSIUM CHLORIDE IV SCH ×9 (23:07)
[2016-12-26] MEDS: MAGNESIUM SULFATE IV SCH ×9 (23:07)
[2016-12-27] MEDS: ROBAXIN PO SCH ×2 (02:10→11:15)
[2016-12-27] MEDS: PHENERGAN IV PRN ×2 (06:12→13:03)
[2016-12-27] MEDS: DILAUDID IV PRN ×2 (06:12→13:03)
[2016-12-27] MEDS: KEFZOL 2 GM/D5W 2 GM/50 ML IVPB IV SCH (06:13)
[2016-12-27] MEDS: SYNTHROID PO SCH (06:13)
[2016-12-27 06:59] LABS: MANUAL DIFF NEEDED? NO
[2016-12-27 07:01] LABS: BASO% 0.7 % (0.0-0.8); EOS# 0.17 X1000 (0.0-0.7); EOS% 2.9 % (0.0-10.0); HEMATOCRIT 37.7 % (37.0-47.0); HEMOGLOBIN 12.4 g/dL (12.0-16.0); IMM GRAN# 0.02 X1000 (0.0-0.04); IMM GRAN% 0.3 % (0.0-0.5); LYMPH# 1.67 X1000 (1.2-3.4); LYMPH% 28.2 % (20.5-51.1); MCH 31.3 PG (27-31); MCHC 32.9 g/dL (33-37); MCV 95.2 FL (81-99); MONO# 0.85 X1000 (0.11-0.59); MONO% 14.3 % (1.7-9.3); MPV 12.5 FL (7.4-10.4); NEUT% 53.6 % (42.2-75.2); PLT 138 X1000 (130-400); RBC 3.96 XMIL (4.2-5.4)
[2016-12-27 07:39] LABS: AGAP 10; BUN 32 mg/dL (8-22); CALCIUM 10.4 mg/dL (8.8-10.2); CHLORIDE 96 mmol/L (98-107); COSMO 291; GOT 30 U/L (10-30); MAGNESIUM 1.9 mg/dL (1.5-2.7); POTASSIUM 3.7 mmol/L (3.5-5.1); PREALBUMIN 18.3 mg/dL (20-40); SODIUM 142 mmol/L (136-145); TCO2 36 mmol/L (25-35)
[2016-12-27 07:57] VITALS: BP 108/47
[2016-12-27] MEDS: VITAMIN D PO SCH (11:15)
[2016-12-27] MEDS: PERCOCET-5 PO SCH (11:16)
[2016-12-27] MEDS: XANAX PO SCH (11:19)
[2016-12-27] MEDS: ASPIRIN PO SCH (11:20)
[2016-12-27] MEDS: LASIX IV SCH ×2 (11:23→11:29)
[2016-12-27] MEDS: MIRALAX PO SCH (11:30)
[2016-12-27] MEDS: PATIENT'S OWN MED PO SCH (11:30)
[2016-12-27] MEDS: ZAROXOLYN PO SCH (11:32)
[2016-12-27] MEDS: CARDIZEM PO SCH (11:36)
--- NOTE | 2016-12-28 12:11 | DISCHARGE SUMMARY ---
ADMISSION DATE: 12/24/2016 DISCHARGE DATE: 12/27/2016 CONSULTATIONS: Dr. John Thao with Infectious Disease. PERTINENT PROCEDURES: 1. Chest x-ray stable. 2. Abdomen x-ray showed no acute abnormality. DISCHARGE DIAGNOSES: 1. Staphylococcus bacteremia, followed by Dr. John Thao of Infectious Disease. [facility], who manages the patient's total parenteral nutrition, is also going to give her her Ancef. Dr. Thao talked with the patient at length. Although this is not a Staphylococcus aureus, it is still a Staphylococcus coagulase negative that would be worthwhile treating with antibiotics delivered through her Port-A-Cath to see if we can save it and not take it out, but he also explained to her the possibility that if they could not eradicate the bacteremia in the situation, then the port would have to be removed. The patient was agreeable to this. Given her allergy to ceftriaxone and Keflex, she is going to be placed on Ancef, which she has tolerated. 2. Mild abdominal distention. Resolved. 3. Coronary artery disease history. No chest pain. 4. Severe systemic scleroderma with malabsorption. Patient will continue on her home total parenteral nutrition with [facility]. 5. Hypothyroidism. Continue Synthroid. 6. B12 deficiency anemia. Aware. HOSPITAL COURSE: Briefly, Ms. Elizondo is a 71-year-old female who carries a past medical history of severe systemic scleroderma and multiple other medical problems, who presented with 12 hours of fever and chills. She has had multiple Port-A-Cath exchanges secondary to infection. She states that anytime she has a fever, her port has become infected and she feels this time this is the case. Fever and chills started around 6 or 7 the night prior to her admission. She had hard chills and fever of 102 degrees, mild nausea, and one episode of vomiting. She reported a dry cough, but no sputum production. When she came to the ED, labs and diagnostics were done. Her initial temperature was 100.3 degrees and it tiffanie to 102.5. She was slightly tachycardic. Lab work did not show anything acute. She did not have any leukocytosis. She was mildly anemic. Otherwise, her urinalysis did not show any signs of infection. She was vasquez-cultured and started on broad-spectrum antibiotics, and admitted to the floor for suspected sepsis. Consulted Dr. Thao, added IV fluid hydration, and Tylenol and Advil for her fever. Abdominal x-ray did not show anything acute. The patient has been afebrile since 12/25/2016. Dr. John Thao discontinued the daptomycin and micafungin, and put the patient on vancomycin and aztreonam. Her blood cultures were growing a Gram-positive cocci. She ended up growing out Staphylococcus capitis. Dr. Thao had an in-depth discussion with the patient. Even though the organism was not Staphylococcus aureus, it was still a Staphylococcus coagulase negative cocci that would be worthwhile treating with antibiotics being delivered through her Port-A-Cath to see if they could save it and not take it out. However, there is the possibility that they could not eradicate the bacteremia. In that situation, the Port-A-Cath would have to be removed. The patient was agreeable to this. She has multiple allergies, to ceftriaxone, Keflex, and penicillin. She has had Ancef many times, so she will be discharged on Ancef that will be provided by [facility], who also manages her home TPN. The patient is stable for discharge today. Vital signs are temperature of 97.8 degrees, heart rate 69, respirations 20, blood pressure 108/47, and O2 is 98% on room air. White count on the day of discharge is 5.93. DISCHARGE DIET: Regular. DISCHARGE MEDICATIONS: As per Dr. Turcios and Dr. Thao. 1. Xanax 0.25 mg p.o. b.i.d. 2. Aspirin 81 mg p.o. b.i.d. 3. Vitamin D3 at 2000 units p.o. b.i.d. 4. Vitamin B12 at 1000 mcg IM as directed. 5. Prolia 60 mg IM as directed. 6. Diltiazem 30 mg p.o. b.i.d. 7. Lasix 30 mg IV at bedtime. 8. Lasix 60 mg IV q.a.m. 9. Synthroid 50 mcg p.o. daily. 10. Robaxin 500 mg 1 tab p.o. q.8 hours. 11. Zaroxolyn 2.5 mg p.o. Saturday and . 12. Nitroglycerin 0.4 mg sublingual p.r.n. 13. Percocet 5 mg p.o. t.i.d. 14. MiraLAX 17 g p.o. daily. 15. Phenergan 25 mg p.o. q.6 hours p.r.n. 16. Total parenteral nutrition q.12 hours as per [facility]. 17. Desyrel 150 mg p.o. at bedtime. 18. Vitamin A 10,000 units p.o. daily. 19. Coumadin 1 mg p.o. at bedtime. FOLLOWUP: The patient is being discharged home with [facility]. She is to follow up with Dr. John Thao in 2 weeks as well as her primary care physician, Dr. Guillen, in 1 week. The patient can return to the ED for any worsening of symptoms. DISCHARGE TIME: Thirty minutes. Dictated by JESSE Sanches for Doe Laguna MD cc: MD Gregorio Moran MD
== END 2016-12-27 16:39 | disposition home health service (06) ==
LOC: ED 23:26 → 3N 12-24 08:51 → SUATTDRO 12-24 08:51 → UNDODISIN 12-25 13:35
PROVIDERS: ATTEND Internal Medicine

== ENCOUNTER 2019-02-06 07:29 | Observation (INO) ==
[2019-02-06] MEDS ORDERED: VANCOMYCIN 1 GM/NS 1 GM/250 ML IVPB ONE (08:16)
[2019-02-06] MEDS ORDERED: LR 1,000 ML ONE (08:16)
[2019-02-06] MEDS ORDERED: DECADRON ONE (08:25)
[2019-02-06] MEDS ORDERED: DIPRIVAN 1% ONE (08:25)
[2019-02-06] MEDS ORDERED: ZOFRAN ONE (08:25)
[2019-02-06] MEDS ORDERED: XYLOCAINE-MPF 2% ONE (08:25)
[2019-02-06] MEDS ORDERED: ROBINUL ONE (08:25)
[2019-02-06] MEDS ORDERED: SENSORCAINE 0.25%/EPI 1:200,000 ONE (08:45)
[2019-02-06] MEDS ORDERED: NS 250 ML ONE (08:45)
[2019-02-06] MEDS: DILAUDID ONE ×3 (10:26→16:27)
--- NOTE | 2019-02-06 10:37 | Diag Imaging Result Doc PS360 ---
EXAM: CHEST-PORTABLE 02/06/2019 HISTORY: Port Right SL TECHNIQUE: AP portable at 1030 COMMENT: The left hemidiaphragm is elevated. Compared to the previous study of 09/04/2018 considering differences in technique there has been no significant change. There is a Port-A-Cath on the right and a PICC line on the left, the latter passing into the right atrium. IMPRESSION: Stable chest. Electronically signed by Jacob Zuñiga 02/06/2019 10:35 AM
--- NOTE | 2019-02-06 11:08 | OPERATIVE NOTE ---
PROCEDURE DATE : 02/06/2019 PREOPERATIVE DIAGNOSIS: Phlebosclerosis. POSTOPERATIVE DIAGNOSES: 1. Phlebosclerosis. 2. Possible deep vein thrombosis in the right internal jugular vein. PROCEDURES: 1. Ultrasound of the vasculature of the right neck. 2. Fluoroscopy-guided right subclavian port placement. SURGEON: Greg Vazquez MD CORE WORKER: None. ANESTHESIA: General endotracheal. OPERATIVE FINDINGS: Ultrasound showed potential for DVT in the jugular vein. There was at least no flow. It was very small. Fluoro showed the catheter in good position. COMPLICATIONS: None at the time of this dictation. ESTIMATED BLOOD LOSS: 5 mL. SPECIMENS REMOVED: None. BRIEF HISTORY: A 73-year-old female with scleroderma and poor vein access. She could not essentially eat. She needs TPN for nutrition. She also has chronic pain and has very difficult pain control. It was felt that she would benefit from a port with observation afterwards given her medical comorbidities. She voiced understanding and wished to proceed with the procedure. DESCRIPTION OF PROCEDURE: After informed consent was obtained, the patient was brought to the Operative Theatre transferred to the operative table and placed in the supine position. General endotracheal anesthesia was then performed without complication. A formal time-out was then performed to confirm the patient and the procedure and all were in agreement. At that time attention was turned to the right neck. We used ultrasound to identify the right internal jugular vein. It was very small. I tried multiple attempts to try to cannulate it but we were unsuccessful. 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 Therefore, I aborted the right side. We did see the carotid artery and it was normal and there was flow noted in the carotid artery. We then turned to the right subclavian and after a second attempt I was able to cannulate the right subclavian vein and pass a wire. We then created a pocket on the right chest wall for the port and tunneled the catheter from the right chest wall to the right subclavian area exchanging the wire in the typical Seldinger technique and initially the catheter kinked at the subclavian area so we had to advance an 0.035 wire through the catheter itself to place it in position right at the junction of the subclavian and brachiocephalic. We then created a pocket and connected the catheter to the port and secured it in place and it was able to flush. Again, this took a couple of attempts and we had to place the 0.035 wire but again we were successful. We then closed the skin. Fluoro showed the catheter in good position. The patient tolerated the procedure well. Given her medical comorbidities and her difficulty with pain management and her lack of support at home we will keep her in the hospital overnight. cc: Greg Vazquez MD
[2019-02-06] MEDS ORDERED: SODIUM CHLORIDE 0.9% IV PRN (12:30)
[2019-02-06] MEDS: NORCO-5 PO PRN (13:47)
[2019-02-06] MEDS: ZOFRAN IV PRN (13:47)
[2019-02-06] MEDS ORDERED: NITROGLYCERIN SL PRN (16:30)
[2019-02-06] MEDS ORDERED: PATIENT'S OWN MED SCH (16:30)
[2019-02-06] MEDS ORDERED: PERCOCET-5 PO SCH (17:00)
[2019-02-06] MEDS ORDERED: XANAX PO SCH ×2 (17:00→21:00)
[2019-02-06] MEDS: PHENERGAN IV PRN (17:31)
[2019-02-06] MEDS: ROBAXIN PO SCH ×2 (17:35→23:48)
[2019-02-06] MEDS: DUONEB (A & A) INH SCH ×2 (17:37→21:28)
[2019-02-06 19:36] LABS: PROTIME 13.3 Seconds (11.0-16.0)
[2019-02-06] MEDS ORDERED: CARDIZEM PO SCH (21:00)
[2019-02-06] MEDS ORDERED: SODIUM IV SCH (21:00)
[2019-02-06] MEDS ORDERED: [UNRECOGNIZED DRUG - OTHER] IV SCH (21:00)
[2019-02-06] MEDS ORDERED: MYLICON PO SCH (21:00)
[2019-02-06] MEDS ORDERED: CULTURELLE PO SCH (21:00)
[2019-02-06] MEDS ORDERED: MAG IV SCH (21:00)
[2019-02-06] MEDS ORDERED: CHLOR IV SCH (21:00)
[2019-02-06] MEDS ORDERED: LASIX IV SCH (21:00)
[2019-02-06] MEDS ORDERED: ACETATE IV SCH (21:00)
[2019-02-06] MEDS ORDERED: COUMADIN PO SCH (21:00)
[2019-02-06] MEDS ORDERED: DESYREL PO SCH (21:00)
[2019-02-06] MEDS ORDERED: VITAMIN D PO SCH (21:00)
[2019-02-06] MEDS ORDERED: ASPIRIN PO SCH (21:00)
[2019-02-07] MEDS: PHENERGAN IV PRN (01:19)
[2019-02-07] MEDS: NORCO-5 PO PRN ×2 (01:19→07:11)
[2019-02-07 02:06] LABS: URINE SOURCE CLEAN CATCH
[2019-02-07 02:07] LABS: BILIRUBIN URINE NEGATIVE (NEGATIVE); BLOOD URINE NEGATIVE (NEGATIVE); COLOR YELLOW; GLUCOSE URINE NEGATIVE (NEGATIVE); KETONE URINE NEGATIVE (NEGATIVE); LEUKOCYTES URINE NEGATIVE (NEGATIVE); NITRITE URINE NEGATIVE (NEGATIVE); PROTEIN URINE NEGATIVE (NEGATIVE); TURBIDITY URINE CLEAR (CLEAR); UROBILINOGEN URINE NORMAL (NORMAL)
[2019-02-07 02:09] LABS: UR EPITHELIAL CELLS <10 /HPF (<10); URINE BACTERIA NEGATIVE /HPF; URINE RBC <10 /HPF (<10); URINE WBC <10 /HPF (<10)
[2019-02-07] MEDS: DUONEB (A & A) INH SCH (05:31)
[2019-02-07] MEDS ORDERED: SYNTHROID PO SCH (07:00)
[2019-02-07] MEDS: ZOFRAN IV PRN (07:11)
[2019-02-07 07:49] VITALS: BP 134/59
[2019-02-07] MEDS ORDERED: VITAMIN A PO SCH (09:00)
[2019-02-07] MEDS ORDERED: LASIX IV SCH (09:00)
[2019-02-07] MEDS ORDERED: ARICEPT PO SCH (09:00)
--- NOTE | 2019-02-07 13:34 | GENERAL SURGERY PROGRESS NOTE ---
DATE: 02/07/2019 SUBJECTIVE: No events overnight. Port is in place. No swelling. Minimal bruising. ASSESSMENT/PLAN: A 73-year-old female with port placement, kept overnight for observation. Plan to go home today. She will see Dr. Vazquez in the next week or two as scheduled. cc: MD Greg Best MD
[2019-02-17] MEDS ORDERED: CYANOCOBALAMIN IM SCH (09:00)
[2019-08-08] MEDS ORDERED: NON-FORMULARY INJ IM SCH (17:00)
== END 2019-02-07 09:49 | disposition home or self-care (01) ==
LOC: OR 07:29 → 4N 07:29
PROVIDERS: ADMIT Surgery; ATTEND Surgery